=== PATIENT | male | born 1945 | race Native Hawaiian/Other Pacific Islander ===

== ENCOUNTER → 2018-05-12 | Outpatient (CLI) | payer OTHER | LOC: AMB 14:34 | DX: Z04.3 Encounter for examination and observation following other accident (principal) ==

== ENCOUNTER 2020-06-07 09:24 | Outpatient (CLI) | payer OTHER | END 2020-06-07 21:43 | disposition home or self-care (01) | LOC: INF 09:24 | PROVIDERS: ATTEND Internal Medicine Endocrinology, Diabetes & Metabolism | DX: Z23 Encounter for immunization (principal) | CPT/HCPCS: 96372 ==

== ENCOUNTER 2020-07-05 10:30 | Outpatient (CLI) | payer OTHER | END 2020-07-05 23:01 | disposition home or self-care (01) | LOC: INF 10:30 | PROVIDERS: ATTEND Internal Medicine Endocrinology, Diabetes & Metabolism | DX: Z23 Encounter for immunization (principal) | CPT/HCPCS: 96372 ==

== ENCOUNTER 2021-05-11 09:31 | Outpatient (CLI) | payer OTHER | END 2021-05-11 19:23 | disposition home or self-care (01) | LOC: INF 09:31 | PROVIDERS: ATTEND Internal Medicine Endocrinology, Diabetes & Metabolism | DX: Z23 Encounter for immunization (principal) ==